=== PATIENT | female | born 1935 | race Caucasian/White ===

== ENCOUNTER → 2024-03-09 | Outpatient (CLI) | payer MEDICARE, OTHER ==
[2024-03-09 11:46] LABS: BASO # 0.02 K/mm3 (0.02-0.10); EOS # 0.01 K/mm3 (0.04-0.40); EOS % 0.1 % (1.0-5.0); HEMATOCRIT 34.6 % (37.0-47.0); LYMPH# 2.17 K/mm3 (1.50-4.00); MEAN CELL VOLUME 85 fl (78-100); MEAN CORPUSCULAR HEMOGLOBIN 27 pg (27-31); MEAN CORPUSCULAR HGB CONC 32 g/dL (33-37); MEAN PLATELET VOLUME 10.6 fl (7.4-10.4); MONO # 0.78 K/mm3 (0.20-0.80); NEU # 4.98 K/mm3 (1.40-6.50); PLATELET COUNT 237 K/mm3 (130-400); RED BLOOD COUNT 4.09 M/mm3 (4.10-5.30); RED CELL DISTRIBUTION WIDTH 18.7 % (11.5-14.5)
[2024-03-09 11:51] LABS: CALCIUM 8.9 mg/dL (8.3-10.5)
== END ==
LOC: LAB 11:29
DX: D72.829 Elevated white blood cell count, unspecified (principal); D62 Acute posthemorrhagic anemia; Z95.2 Presence of prosthetic heart valve